=== PATIENT | male | born 1985 | race Caucasian/White ===

== ENCOUNTER 2018-11-26 20:06 | Emergency (ER) | payer OTHER ==
[2018-11-26] MEDS: IBUPROFEN 200 MG TAB PO (21:05)
[2018-11-26] MEDS: ACETAMINOPHEN 325 MG TAB PO (21:05)
== END 2018-11-26 22:23 | disposition home or self-care (01) ==
LOC: FTE 20:06
DX: S93.401A Sprain of unspecified ligament of right ankle, initial encounter (principal); W18.39XA Other fall on same level, initial encounter; Y92.9 Unspecified place or not applicable
CPT/HCPCS: 29515; 73610-RT; 99283-25